=== PATIENT | male | born 1995 | race American Indian/Alaskan Native ===

== ENCOUNTER 2019-09-10 08:22 | Emergency (ER) | payer SELFPAY ==
[2019-09-10 08:37] VITALS: BP 116/70
--- NOTE | 2019-09-10 09:10 | Emergency Department Report ---
Chief Complaint: Chest Pain Stated Complaint: CP Time Seen by Provider: 09/10/19 09:07 - HPI History of Present Illness: Patient is a 23-year-old -[place] male who woke up this morning with chest pain. He describes it as substernal sharp and worse when he moves. He denies cigarettes alcohol or drugs. He denies any injury. Patient has no cardiac history. He has no medical history. He is on no medications. He has not had no surgeries in the past. He has no primary care doctor. He denies shortness of breath. He denies cough. He denies COVID exposure. He denies being around anyone with known illness. He denies any fever. Twelve-lead EKG and chest x-ray as ordered by the RN in triage are normal - ROS Review of Systems: See above - Exam Vital Signs: Vital Signs 09/10/19 08:36 Temperature 98.4 F Pulse Rate 79 Respiratory 20 Rate Blood Pressure 116/70 O2 Sat by Pulse 100 Oximetry Physical Exam: Alert and oriented x4. Ambulatory to the ER. Nontoxic. S1-S2. Lungs clear. Abdomen soft and nontender. Patient is of normal weight. He has no edema. No JVD. MSE screening note: Focused history and physical exam performed. Due to findings the following was ordered: Patient has no immediate life-threatening emergency. Patient being MSE to PCP. Patient discussed with doctor:: [facility] ED Disposition for MSE Clinical Impression: Non-cardiac chest pain Disposition: Z MED SCREENING EXAM-LEFT Is pt being admited?: No Does the pt Need Aspirin: No Condition: Stable Additional Instructions: follow up with pcp referral below motrin or tylenol for pain Referrals: JULIOCESAR BAUGH MD [Staff Physician] - 3-5 Days Time of Disposition: :09
--- NOTE | 2019-09-10 09:24 | XRay Report ---
CHEST 1 VIEW INDICATION: Chest Pain. COMPARISON: 08/27/2015. FINDINGS: Support devices: None. Heart: Within normal limits. Lungs/Pleura: No acute air space or interstitial disease. Additional findings: None. IMPRESSION: No acute abnormality. Signer Name: Aleksandar Davis MD Signed: 09/10/2019 9:19 AM Workstation Name: [email or web address]
== END 2019-09-10 09:23 | disposition left against medical advice (07) ==
LOC: ED 08:22
DX: R07.2 Precordial pain (principal)
CPT/HCPCS: 71045; 93005; 99283